=== PATIENT | female | born 1965 ===

== ENCOUNTER 2020-10-24 16:09 | Emergency (ER) | payer SELFPAY ==
[~2020-10-24] VITALS: Ht 152.4 cm; Wt 54.5 kg
[~2020-10-24 16:09] MED LIST: FLEXERIL 1010 MG/TAB PO; NAPROSYN500 MG PO; VOLTAREN 75 DR75 MG PO
[2020-10-24 17:05] VITALS: BP 125/64; PULSE 64; TEMP 99.7
== END 2020-10-24 17:05 | disposition home or self-care (01) ==
LOC: COL.ER 16:09
DX: R51.9 Headache, unspecified (principal)

== ENCOUNTER 2022-04-05 10:50 | Emergency (ER) | payer SELFPAY ==
[2022-04-05 11:05] VITALS: BP 159/90; TEMP 98.1
[2022-04-05 11:43] VITALS: PULSE 72
== END 2022-04-05 11:43 | disposition home or self-care (01) ==
LOC: COL.ER 10:50
DX: R13.10 Dysphagia, unspecified (principal); F17.210 Nicotine dependence, cigarettes, uncomplicated